=== PATIENT | female | born 1955 | race Caucasian/White ===

== ENCOUNTER 2025-01-19 12:55 | Outpatient (CLI) | payer OTHER, SELFPAY ==
--- NOTE | 2025-01-19 13:20 | CRLHL7_ITS ---
For Patients: As a result of the Century Cures Act, medical imaging exams and procedure reports are released immediately into your electronic medical record. You may view this report before your referring provider. If you have questions, please contact your health care provider. INDICATION: BILATERAL SCREENING MAMMOGRAM, ASYMPTOMATIC 69 Y/O FEMALE COMPARISON: MAMMO WOULD BE OVER 10 YEAR OLD - SHE DID NOT TOLERATE EXAM, POSITIONING OR COMPRESSION. BEST IMAGES POSSIBLE NONE TECHNIQUE: CC and MLO views were obtained. These mammographic images have been obtained using full-field digital technique. These mammographic images were interpreted with the benefit of computer aided detection and tomosynthesis. BREAST COMPOSITION: The breasts are heterogeneously dense, which may obscure small masses. FINDINGS: No suspicious findings. ASSESSMENT: BI-RADS 1 Negative RECOMMENDATION: Annual screening mammogram. A lay language report of this examination will be provided to the patient. Dictated by: Elliot Curiel MD @ 01/21/2025 09:26:11 (Electronically Signed)
--- NOTE | 2025-01-19 14:00 | CRLHL7_ITS ---
For Patients: As a result of the Cures Act, medical imaging exams and procedure reports are released immediately into your electronic medical record. You may view this report before your referring provider. If you have questions, please contact your health care provider. XR DXA Bone Mineral Density (BMD) Reason for exam: Screening for osteoporosis. Current height (inches): 64.0 Weight (lbs.): 143.0 Menopause age: 46 Ethnicity: White 1. Have you had a previous hip or vertebral fracture? No. 2. Have you had any fractures during your adult life which did not result from significant trauma (e.g., auto accident)? No. 3. Did either of your parents have a hip fracture? No. 4. Do you smoke? No. 5. Have you ever taken Glucocorticoids? No. 6. Do you have rheumatoid arthritis? No. 7. Do you have secondary osteoporosis? No. 8. Do you drink 3 or more alcoholic drinks per day? No. 9. Are you being treated for osteoporosis? No. 10. Have you ever taken any of the following medications: Actonel, Evista, Fosamax, Miacalcin, Reclast, Boniva, Forteo, HRT (i.e., estrogen/hormone therapy), Protelos, Prolia, Vitamin D, Calcium, other ??? please specify. ANSWER: Yes; vitamin D. 11. Do you have any of the following medical conditions: Anorexia or bulimia, asthma or emphysema, end stage renal disease, hyperparathyroidism, any seizure disorders, cancer, inflammatory bowel diseases, hysterectomy, other ??? please specify. ANSWER: No. 12. What was your maximum height (inches)? 64. 13. Do you perform weightbearing exercise regularly? No. 14. Do you regularly consume dairy products? Yes. 15. Do you drink caffeinated beverages? Yes. 16. At what age did your period start? 13. 17. Are you premenopausal? No. 18. How many full-term pregnancies have you had? 0. 19. Have you ever missed your period for more than 6 months in a row (not including or menopause)? No. TECHNIQUE: Bone mineral density study was performed using the [employer]. FINDINGS: The results of the study expressed as bone mineral density (BMD) are as follows: Lumbar Spine L1 to L4: BMD: 0.957 g/cm2. T-score: -0.8. Z-score: 1.4. Neck Left: BMD: 0.632 g/cm2. T-score: -2.0. Z-score: -0.1. Right: BMD: 0.645 g/cm2. T-score: -1.8. Z-score: 0.1. Total Left: BMD: 0.824 g/cm2. T-score: -1.0. Z-score: 0.6. Right: BMD: 0.814 g/cm2. T-score: -1.0. Z-score: 0.6. IMPRESSION: Osteopenia. FRAX 10-year Fracture Risk Major Osteoporotic Fracture: 12% Hip Fracture: 2.5% Reported Risk Factors: [place] () Neck BMD = 0.632, BMI = 24.5 BRENDON SIMMONS M.D. Diagnostic/Nuclear Medicine Radiologist [email or web address] Transcribed: 4:[address]/Dictated by: Brendon Simmons MD @ 01/20/2025 1:33:00 PM (Electronically Signed)
== END 2025-01-19 12:56 | disposition home or self-care (01) ==
PROVIDERS: Visit Provider Emergency Medicine
DX: Z12.31 Encounter for screening mammogram for malignant neoplasm of breast (principal); R92.333 Mammographic heterogeneous density, bilateral breasts; Z13.820 Encounter for screening for osteoporosis; M85.89 Other specified disorders of bone density and structure, multiple sites
CPT/HCPCS: 77063; 77067; 77080

== ENCOUNTER 2025-04-28 10:26 | Outpatient (CLI) | payer OTHER, SELFPAY ==
--- NOTE | 2025-04-28 11:00 | CRLHL7_ITS ---
For Patients: As a result of the Century Cures Act, medical imaging exams and procedure reports are released immediately into your electronic medical record. You may view this report before your referring provider. If you have questions, please contact your health care provider. Indication: Pneumonia Technique: CT Chest WITH 75 CC ISOVUE 370 intravenous contrast Please note that all CT scans at this facility use dose modulation, iterative reconstruction, and/or weight-based dosing when appropriate to reduce radiation dose to as low as reasonably achievable. Comparison: 10/12/2024 Findings: Visualized thyroid is within normal limits. No enlarged intrathoracic lymph nodes. No pleural or pericardial effusion. Incidental splenule. Atherosclerotic changes. No infiltrate or edema. No pneumothorax. No suspicious pulmonary nodule. No vertebral body compression fracture. Impression: No infiltrate. Resolution of previously noted ground-glass densities within the right upper lobe. Please note that all CT scans at this facility use dose modulation, iterative reconstruction, and/or weight-based dosing when appropriate to reduce radiation dose to as low as reasonably achievable. Dictated by Elliot Curiel MD @ 04/28/2025 11:58:45 AM (Electronically Signed)
[2025-04-28 11:02] LABS: Creatinine* 1.0 mg/dL (0.5-1.5); Estimated Glomerular Filt Rate 60 ml/min
== END 2025-04-28 10:27 | disposition home or self-care (01) ==
LOC: CT 10:28
PROVIDERS: PCP Emergency Medicine; Visit Provider Emergency Medicine
DX: J18.9 Pneumonia, unspecified organism (principal)
CPT/HCPCS: 36415; 71260; 82565; Q9967

== ENCOUNTER 2025-07-11 13:39 | Outpatient (CLI) | payer OTHER, SELFPAY | END 2025-07-11 13:40 | disposition home or self-care (01) | PROVIDERS: Visit Provider Physician Assistant Medical | DX: Z00.00 Encounter for general adult medical examination without abnormal findings (principal) | CPT/HCPCS: 80053; 80061; 84443 ==